=== PATIENT | female | born 1980 | race Caucasian/White ===

== ENCOUNTER 2016-10-14 18:10 | Emergency (ER) | payer MEDICAID ==
[~2016-10-14] VITALS: Ht 154.9 cm; Wt 86.2 kg
[2016-10-14 18:46] VITALS: BP 146/89; PULSE 86; RESP 16; TEMP 97.3; O2SAT 98
[2016-10-14 19:00] VITALS: BP 146/89; PULSE 86; RESP 16; TEMP 97.3; O2SAT 98
== END 2016-10-14 19:00 | disposition home or self-care (01) ==
LOC: SED 18:10
DX: R09.89 Other specified symptoms and signs involving the circulatory and respiratory systems (principal); F12.10 Cannabis abuse, uncomplicated; F17.200 Nicotine dependence, unspecified, uncomplicated; Z71.6 Tobacco abuse counseling
CPT/HCPCS: 99283